=== PATIENT | male | born 1955 | race Caucasian/White ===

== ENCOUNTER 2018-09-25 16:25 | Emergency (ER) | payer MEDICAID ==
[~2018-09-25] VITALS: Ht 170.2 cm; Wt 56.9 kg
[2018-09-25 16:47] VITALS: BP 134/69
[2018-09-25] MEDS ORDERED: LISI40TA PO (17:15)
[2018-09-25] MEDS ORDERED: TAMS-11 PO (17:15)
== END 2018-09-25 17:16 | disposition home or self-care (01) ==
LOC: ED 17:10
DX: I10 Essential (primary) hypertension (principal); Z76.0 Encounter for issue of repeat prescription
CPT/HCPCS: 99283